=== PATIENT | female | born 1960 | race Two or more races ===

== ENCOUNTER 2024-11-17 11:02 | Emergency (ER) | payer OTHER ==
[~2024-11-17] VITALS: Ht 157.5 cm; Wt 76.2 kg
[2024-11-17] MEDS ORDERED: COZAAR25 MG (11:09)
[2024-11-17] MEDS ORDERED: GLUMETZA500 MG (11:09)
[2024-11-17] MEDS ORDERED: LIVALO4 MG (11:09)
[2024-11-17] MEDS ORDERED: OMEPRAZOLE40 MG (11:09)
[2024-11-17] MEDS ORDERED: ALLEGRA ALLERG180 MG (11:09)
[2024-11-17] MEDS ORDERED: FARXIGA10 MG (11:10)
[2024-11-17 13:01] LABS: HEMATOCRIT 40.8 % (36.0-45.00); MEAN CELL VOLUME 82.7 fL (80.00-100.00); MEAN CORPUSCULAR HEMOGLOBIN 26.4 pg (27.00-32.0); PLATELET COUNT 221 K/uL (150-450); RED BLOOD COUNT 4.93 M/uL (4.00-6.00); RED CELL DISTRIBUTION WIDTH 15.1 % (11.5-14.5)
[2024-11-17 13:26] LABS: ALBUMIN 3.5 gm/dL (3.4-5.0); BILIRUBIN TOTAL 0.36 mg/dL (0.3-1.2); CALCIUM 9.3 mg/dL (8.5-10.1); CREATININE SERUM 0.59 mg/dL (0.55-1.02); GFR 102.29; GLOBULINA 4.3 G/DL (2.4-3.5); POTASSIUM 4.04 mEq/L (3.5-5.1); TOTAL PROTEIN 7.8 gm/dL (6.4-8.2)
[2024-11-17] MEDS ORDERED: CELEBREX100 MG PO (15:55)
== END 2024-11-17 16:08 | disposition home or self-care (01) ==
LOC: ER 11:05
PROVIDERS: Preventive Medicine Public Health & General Preventive Medicine
DX: R10.9 Unspecified abdominal pain (principal); E11.9 Type 2 diabetes mellitus without complications; Z79.84 Long term (current) use of oral hypoglycemic drugs; K21.9 Gastro-esophageal reflux disease without esophagitis; E78.49 Other hyperlipidemia; Z98.84 Bariatric surgery status; K57.30 Diverticulosis of large intestine without perforation or abscess without bleeding
CPT/HCPCS: 36415; 74177; 99284; Q9965

== ENCOUNTER 2024-12-10 14:01 | Outpatient (CLI) | payer OTHER ==
[~2024-12-10 14:01] MED LIST: ALLEGRA ALLERG180 MG; CELEBREX100 MG PO; COZAAR25 MG; FARXIGA10 MG; GLUMETZA500 MG; LIVALO4 MG; OMEPRAZOLE40 MG
== END 2024-12-10 14:11 | disposition home or self-care (01) ==
LOC: MAMO-SONO 14:01
PROVIDERS: ATTEND Obstetrics & Gynecology
DX: N60.11 Diffuse cystic mastopathy of right breast (principal); N60.12 Diffuse cystic mastopathy of left breast; M25.532 Pain in left wrist; M25.531 Pain in right wrist; M25.542 Pain in joints of left hand; M25.541 Pain in joints of right hand; M25.571 Pain in right ankle and joints of right foot; R10.2 Pelvic and perineal pain; Z12.31 Encounter for screening mammogram for malignant neoplasm of breast

== ENCOUNTER 2025-01-14 12:35 | Outpatient (CLI) | payer OTHER | END 2025-01-14 12:44 | disposition home or self-care (01) | LOC: SONOGRAMA 12:35 | PROVIDERS: ATTEND Internal Medicine Endocrinology, Diabetes & Metabolism | DX: E04.1 Nontoxic single thyroid nodule (principal) ==

== ENCOUNTER 2025-01-30 13:32 | Outpatient (CLI) | payer OTHER | END 2025-01-30 13:33 | disposition home or self-care (01) | LOC: NUCLEAR 13:32 | PROVIDERS: ATTEND Internal Medicine Endocrinology, Diabetes & Metabolism | DX: M81.0 Age-related osteoporosis without current pathological fracture (principal) ==

== ENCOUNTER 2025-01-30 15:01 | Outpatient (CLI) | payer OTHER ==
[2025-01-30 16:17] LABS: CREATININE SERUM 0.58 mg/dL (0.55-1.02); GFR 104.33
== END 2025-01-30 15:02 | disposition home or self-care (01) ==
LOC: LAB 15:01
PROVIDERS: ATTEND Radiology Diagnostic Radiology
DX: R10.2 Pelvic and perineal pain (principal)

== ENCOUNTER 2025-02-02 12:12 | Outpatient (CLI) | payer OTHER | END 2025-02-02 12:13 | disposition home or self-care (01) | LOC: MRI 12:12 | PROVIDERS: ATTEND Obstetrics & Gynecology | DX: R10.2 Pelvic and perineal pain (principal); R19.00 Intra-abdominal and pelvic swelling, mass and lump, unspecified site; D25.0 Submucous leiomyoma of uterus | CPT/HCPCS: 72197; Q9965 ==